=== PATIENT | male | born 1950 | race Caucasian/White ===

== ENCOUNTER 2019-03-06 08:16 | Outpatient (CLI) | payer MEDICARE ==
[2019-03-06] MEDS ORDERED: AMLO10TA8 PO (09:28)
[2019-03-06] MEDS ORDERED: GLUC1CAP18 PO (09:28)
[2019-03-06] MEDS ORDERED: QUIN40TA15 PO (09:28)
[2019-03-06] MEDS ORDERED: IBUP-1623 PO (09:28)
[2019-03-06] MEDS ORDERED: METO50TA82 PO (09:28)
== END 2019-03-06 23:59 | disposition home or self-care (01) ==
LOC: STAR 08:16
PROVIDERS: ATTEND Surgery
DX: Z01.818 Encounter for other preprocedural examination (principal); K40.90 Unilateral inguinal hernia, without obstruction or gangrene, not specified as recurrent; I45.10 Unspecified right bundle-branch block
CPT/HCPCS: 93005

== ENCOUNTER 2019-03-12 10:44 | Day surgery (SDC) | payer MEDICARE ==
[2019-03-06 09:11] VITALS: BP 145/93
[~2019-03-12] VITALS: Ht 188 cm; Wt 111.0 kg
[~2019-03-12 10:44] MED LIST: AMLO10TA8 PO; GLUC1CAP18 PO; IBUP-1623 PO; METO50TA82 PO; QUIN40TA15 PO
[2019-03-12] MEDS ORDERED: LACTATED RINGERS 1,000 ML IV SCH (11:19)
[2019-03-12] MEDS ORDERED: PLEASE ENTER ALLERGIES MC SCH (11:30)
[2019-03-12] MEDS ORDERED: ACETAMINOPHEN 500 MG TABLET PO ONE (11:30)
[2019-03-12] MEDS ORDERED: GABAPENTIN 300 MG CAPSULE PO ONE (11:30)
[2019-03-12] MEDS ORDERED: MIDAZOLAM 1 MG/ML, 2ML ONE (12:08)
[2019-03-12] MEDS ORDERED: FENTANYL PF 250 MCG/5ML ONE (12:09)
[2019-03-12] MEDS ORDERED: LABETALOL 5MG/ML, 20ML IV PRN (13:00)
[2019-03-12] MEDS ORDERED: HYDROmorphone 2 MG/ML, 1ML IVPush PRN (13:00)
[2019-03-12] MEDS ORDERED: hydrALAzine 20 MG/ML, 1ML IV PRN (13:00)
[2019-03-12] MEDS ORDERED: ONDANSETRON 2MG/ML, 2ML IV PRN (13:00)
[2019-03-12] MEDS ORDERED: MEPERIDINE/PF 25MG/0.5ML IVPush PRN (13:00)
[2019-03-12] MEDS ORDERED: PROMETHAZINE 25 MG/ML, 1ML IV PRN (13:00)
[2019-03-12] MEDS ORDERED: OXYcodone 5 MG/5 ML ORAL.SOL UDC PO PRN (13:00)
[2019-03-12] MEDS ORDERED: BUPIVACAINE/EPI 0.5% 1:200K ONE (14:16)
[2019-03-12] MEDS ORDERED: CEFAZOLIN 1,000 MG ONE (14:39)
[2019-03-12] MEDS ORDERED: PROPOFOL 10 MG/ML, 20ML ONE (14:39)
[2019-03-12] MEDS ORDERED: NEOSTIGMINE 1 MG/ML, 10ML ONE (14:39)
[2019-03-12] MEDS ORDERED: ONDANSETRON 2MG/ML, 2ML ONE (14:39)
[2019-03-12] MEDS ORDERED: GLYCOPYRROLATE 0.2MG/1ML, 5ML ONE (14:39)
[2019-03-12] MEDS ORDERED: ROCURONIUM 10MG/ML,5ML ONE (14:39)
[2019-03-12] MEDS ORDERED: DEXAMETHASONE 4 MG/ML, 1ML ONE (14:39)
[2019-03-12] MEDS ORDERED: FENTANYL PF 100 MCG/2ML ONE (16:05)
[2019-03-12] MEDS ORDERED: OXYcodone 5 MG/5 ML ORAL.SOL UDC ONE (16:05)
[2019-03-12] MEDS: FENTANYL PF 100 MCG/2ML IV PRN ×2 (16:07→16:15)
[2019-03-12] MEDS ORDERED: HYDROmorphone 2 MG/ML, 1ML ONE (16:17)
== END 2019-03-12 18:35 | disposition home or self-care (01) ==
LOC: OUT 10:44
PROVIDERS: ATTEND Surgery
DX: K40.90 Unilateral inguinal hernia, without obstruction or gangrene, not specified as recurrent (principal); D17.6 Benign lipomatous neoplasm of spermatic cord; I10 Essential (primary) hypertension; E78.5 Hyperlipidemia, unspecified; Z72.89 Other problems related to lifestyle; Z79.1 Long term (current) use of non-steroidal anti-inflammatories (NSAID); Z79.899 Other long term (current) drug therapy; Z90.49 Acquired absence of other specified parts of digestive tract; Z98.52 Vasectomy status; Z98.890 Other specified postprocedural states
CPT/HCPCS: 49650; C1727; C1781; J0690; J1100; J1170; J2250; J2405; J2704; J2710; J3010; J7120